=== PATIENT | female | born 1975 | race Caucasian/White ===

== ENCOUNTER 2018-02-02 12:43 | Emergency (ER) | payer OTHER ==
[~2018-02-02] VITALS: Ht 160 cm; Wt 59.7 kg
[~2018-02-02 12:43] MED LIST: IBUP-1223 PO; NO MEDS; ONDA4TAB10 PO; OXYC-302 PO; PREN1TAB27 PO
[2018-02-02] MEDS ORDERED: FAMOTIDINE 20 MG TABLET PO ONE ×2 (13:30→14:24)
[2018-02-02 13:51] LABS: BASOPHILS # (AUTO) 0.16 x10^3/uL (0-0.1); BASOPHILS % (AUTO) 2 % (0-1); EOSINOPHILS # (AUTO) 0.45 x10^3/uL (0-0.4); EOSINOPHILS % (AUTO) 6 % (1-7); LYMPHOCYTES # (AUTO) 2.09 x10^3/uL (1-3.4); LYMPHOCYTES % (AUTO) 29 % (22-44); MD NO; MEAN CORPUSCULAR HEMOGLOBIN 30.7 pg (27.0-34.8); MEAN CORPUSCULAR HGB CONC 34.7 g/dL (32.4-35.8); MEAN CORPUSCULAR VOLUME 88.3 fL (80-100); MEAN PLATELET VOLUME 8.5 fL (7.4-10.4); MONOCYTES # (AUTO) 0.52 x10^3/uL (0.2-0.8); MONOCYTES % (AUTO) 7 % (2-9); NEUTROPHILS # (AUTO) 4.13 x10^3/uL (1.8-6.8); NEUTROPHILS % (AUTO) 56 % (42-75); PLATELET COUNT 252 x10^3/uL (130-400); RED BLOOD COUNT 4.53 x10^6/uL (3.82-5.3); RED CELL DISTRIBUTION WIDTH 12.8 % (9.6-15.2)
[2018-02-02 14:00] LABS: ALANINE AMINOTRANSFERASE 64 U/L (12-78); ALBUMIN 3.9 g/dL (3.4-5.0); ANION GAP 7 mmol/L (5-15); CHLORIDE 106 mmol/L (98-107); CREATININE 0.72 mg/dL (0.55-1.02)
[2018-02-02 14:05] LABS: ALKALINE PHOSPHATASE 55 U/L (45-117); BILIRUBIN,TOTAL 0.5 mg/dL (0.2-1.0); TOTAL PROTEIN 7.7 g/dL (6.4-8.2)
[2018-02-02 14:10] LABS: TROPONIN I < 0.015 ng/mL (0.000-0.045)
[2018-02-02] MEDS ORDERED: FAMOTIDINE 20 MG TABLET ONE (14:22)
[2018-02-02 14:31] VITALS: BP 134/99
== END 2018-02-02 14:51 | disposition home or self-care (01) ==
LOC: ED 13:58
DX: R11.0 Nausea (principal)
CPT/HCPCS: 36415; 80053; 80074; 83690; 84484; 84703; 85025; 86480; 87806; 99284; G0475

== ENCOUNTER → 2018-11-19 | Outpatient (CLI) | payer OTHER | END | disposition home or self-care (01) | LOC: CFH 08:22 | PROVIDERS: ATTEND Clinical Nurse Specialist Women's Health | DX: Z12.31 Encounter for screening mammogram for malignant neoplasm of breast (principal) | CPT/HCPCS: 77063; 77067 ==

== ENCOUNTER 2019-06-03 08:27 | Day surgery (SDC) | payer BC ==
[~2019-06-03] VITALS: Ht 160 cm; Wt 58.1 kg
[2019-06-03] MEDS ORDERED: LACTATED RINGERS 1,000 ML IV SCH (09:02)
[2019-06-03 09:08] LABS: HCG UR SG 1.024 (1.003-1.030)
[2019-06-03 09:17] VITALS: BP 121/82
[2019-06-03] MEDS ORDERED: SCOPOLAMINE PATCH, 1.5MG PATCH.TD72 TD ONE ×2 (09:41→10:00)
[2019-06-03] MEDS ORDERED: CIPROFLOXACIN/HYDROCORTISONE EAR SUSP 0.2-1%, 10ML ONE (09:51)
[2019-06-03] MEDS ORDERED: PROPOFOL 50 ML ONE (09:56)
[2019-06-03] MEDS ORDERED: FENTANYL PF 100 MCG/2ML ONE (09:56)
[2019-06-03] MEDS ORDERED: HYDROmorphone 2 MG/ML, 1ML IVPush PRN (10:00)
[2019-06-03] MEDS ORDERED: LABETALOL 5MG/ML, 20ML IV PRN (10:00)
[2019-06-03] MEDS ORDERED: hydrALAzine 20 MG/ML, 1ML IV PRN (10:00)
[2019-06-03] MEDS ORDERED: MEPERIDINE/PF 25MG/ML,1ML IVPush PRN (10:00)
[2019-06-03] MEDS ORDERED: PROMETHAZINE 25 MG/ML, 1ML IV PRN (10:00)
[2019-06-03] MEDS ORDERED: OXYcodone 5 MG/5 ML ORAL.SOL UDC PO PRN (10:00)
[2019-06-03] MEDS ORDERED: FENTANYL PF 100 MCG/2ML IV PRN (10:00)
[2019-06-03] MEDS ORDERED: HALOPERIDOL 5 MG/ML IV PRN (10:00)
[2019-06-03] MEDS ORDERED: DEXAMETHASONE 4 MG/ML, 1ML ONE (10:17)
[2019-06-03] MEDS ORDERED: CEFAZOLIN 1,000 MG ONE (10:17)
[2019-06-03] MEDS ORDERED: PROPOFOL 10 MG/ML, 20ML ONE (10:17)
[2019-06-03] MEDS ORDERED: ONDANSETRON 2MG/ML, 2ML ONE (10:17)
[2019-06-03] MEDS ORDERED: PROMETHAZINE 25 MG SUPP PR ONE (10:52)
[2019-06-03] MEDS ORDERED: PROMETHAZINE 25 MG SUPP PR PRN (11:00)
== END 2019-06-03 11:55 | disposition home or self-care (01) ==
LOC: OUT 08:27
PROVIDERS: ATTEND Otolaryngology
DX: H69.83 Other specified disorders of Eustachian tube, bilateral (principal); Z91.018 Allergy to other foods; Z98.890 Other specified postprocedural states
CPT/HCPCS: 69436; 81025; J1100; J2405; J2704; J3010; J7120; J0690

== ENCOUNTER 2019-12-02 10:55 | Day surgery (SDC) | payer OTHER ==
[~2019-12-02] VITALS: Ht 160 cm; Wt 58.8 kg
[2019-12-02] MEDS ORDERED: CIPROFLOXACIN/HYDROCORTISONE EAR SUSP 0.2-1%, 10ML ONE (11:03)
[2019-12-02 11:33] VITALS: BP 121/83
[2019-12-02] MEDS ORDERED: LACTATED RINGERS 1,000 ML IV SCH (11:37)
[2019-12-02] MEDS ORDERED: CHLORHEXIDINE 15 ML UDC ONE (11:45)
[2019-12-02] MEDS ORDERED: CHLORHEXIDINE 15 ML UDC MM ONE (12:00)
[2019-12-02] MEDS ORDERED: SCOPOLAMINE 1MG PATCH TD ONE (12:14)
[2019-12-02] MEDS ORDERED: FENTANYL PF 100 MCG/2ML ONE (12:17)
[2019-12-02] MEDS ORDERED: PROPOFOL 10 MG/ML, 50ML ONE (12:23)
[2019-12-02] MEDS ORDERED: DEXAMETHASONE 4 MG/ML, 1ML ONE (12:23)
[2019-12-02] MEDS ORDERED: ONDANSETRON 2MG/ML, 2ML ONE (12:23)
[2019-12-02 12:49] LABS: HCG UR SG 1.021 (1.003-1.030)
[2019-12-02] MEDS ORDERED: KETOROLAC 30 MG/1 ML IVPush PRN (13:30)
[2019-12-02] MEDS ORDERED: FENTANYL PF 100 MCG/2ML IV PRN (13:30)
[2019-12-02] MEDS ORDERED: PROMETHAZINE 25 MG/ML, 1ML IVPush PRN (13:30)
[2019-12-02] MEDS ORDERED: DIPHENHYDRAMINE 50 MG/ML, 1ML IVPush PRN (13:30)
== END 2019-12-02 14:00 | disposition home or self-care (01) ==
LOC: OUT 10:55
PROVIDERS: ATTEND Otolaryngology
DX: H69.93 Unspecified Eustachian tube disorder, bilateral (principal); Z11.59 Encounter for screening for other viral diseases; H66.93 Otitis media, unspecified, bilateral; H81.09 Meniere's disease, unspecified ear; Z88.1 Allergy status to other antibiotic agents
CPT/HCPCS: 69436; 81025; 87635; J1100; J2405; J2704; J3010; J7120